=== PATIENT | female | born 1955 | race African-American/Black ===

== ENCOUNTER 2016-08-21 08:00 | Outpatient (RCR) | payer OTHER ==
[~2016-08-21 08:00] MED LIST: AGGRENOX 25 MG1 EACH ORAL; ALBUTEROL SULF8.5 GM INH; ASPIR-TRIN325 MG PO; AZELASTINE137 MCG/0. NS; AZITHROMYCIN250 MG ORAL; GUAIFENESIN-CO118 M1 PO; HUMALOG100 UNIT/4 SUBQ; LANTUS SOL100 UNIT/1 SUBQ; LOSARTAN-HCTZ1 EAC1 PO; NORVASC10 MG PO; PREDNISONE50 MG ORAL; PROAIR HFA8.5 GM IH; PROMETHAZINE-C118 M1 ORAL; PULMICORT FLEX90 MCG IH; SINGULAIR10 MG ORAL
== END 2016-09-17 | disposition home or self-care (01) ==
LOC: PTY 08:00
DX: M79.671 Pain in right foot (principal); M25.571 Pain in right ankle and joints of right foot; I89.0 Lymphedema, not elsewhere classified; Z91.81 History of falling; Z91.011 Allergy to milk products
CPT/HCPCS: 29530

== ENCOUNTER 2016-09-18 08:03 | Outpatient (RCR) | payer OTHER | END 2016-10-15 | disposition home or self-care (01) | LOC: PTY 08:03 | DX: M79.671 Pain in right foot (principal); M25.571 Pain in right ankle and joints of right foot; I89.0 Lymphedema, not elsewhere classified; Z91.81 History of falling; Z91.011 Allergy to milk products ==

== ENCOUNTER 2016-10-31 14:30 | Outpatient (RCR) | payer OTHER | END 2016-11-15 | disposition home or self-care (01) | LOC: PTY 14:30 | DX: M25.511 Pain in right shoulder (principal) | CPT/HCPCS: 97110; 97140; 97163; G0283 ==

== ENCOUNTER 2016-11-19 09:15 | Outpatient (RCR) | payer OTHER | END 2016-12-15 | disposition home or self-care (01) | LOC: PTY 09:15 | DX: M25.511 Pain in right shoulder (principal) | CPT/HCPCS: 97035; 97110; 97140; G0283 ==

== ENCOUNTER 2017-02-21 14:15 | Outpatient (RCR) | payer OTHER | END 2017-03-17 | disposition home or self-care (01) | LOC: PTY 14:15 | DX: M25.511 Pain in right shoulder (principal) | CPT/HCPCS: 97035; 97110; 97140; 97162; G0283 ==

== ENCOUNTER 2017-03-25 15:20 | Outpatient (RCR) | payer OTHER | END 2017-04-17 | disposition home or self-care (01) | LOC: PTY 15:20 | DX: M25.511 Pain in right shoulder (principal) | CPT/HCPCS: 97110; 97140; G0283 ==

== ENCOUNTER → 2017-04-17 | Outpatient (RCR) | payer OTHER | END | disposition home or self-care (01) | LOC: PTY 03-27 15:40 | DX: M17.11 Unilateral primary osteoarthritis, right knee (principal); M79.671 Pain in right foot; M25.571 Pain in right ankle and joints of right foot; I89.0 Lymphedema, not elsewhere classified; Z91.81 History of falling; Z91.011 Allergy to milk products | CPT/HCPCS: 97110; 97112; 97116; 97140; 97162; G0283 ==

== ENCOUNTER 2017-05-13 15:13 | Outpatient (RCR) | payer OTHER | END 2017-05-17 | disposition home or self-care (01) | LOC: PTY 15:13 | DX: M25.511 Pain in right shoulder (principal) | CPT/HCPCS: 97110; 97140; G0283 ==

== ENCOUNTER 2017-06-10 15:45 | Outpatient (RCR) | payer OTHER | END 2017-06-17 | disposition home or self-care (01) | LOC: PTY 15:45 | DX: M17.11 Unilateral primary osteoarthritis, right knee (principal) | CPT/HCPCS: 97110; 97140; G0283 ==

== ENCOUNTER 2017-11-20 16:00 | Outpatient (RCR) | payer OTHER | END 2017-12-15 | disposition home or self-care (01) | LOC: PTY 16:00 | PROVIDERS: ATTEND Internal Medicine | DX: M25.561 Pain in right knee (principal); M25.511 Pain in right shoulder | CPT/HCPCS: 97035; 97110; 97140; 97162; G0283 ==

== ENCOUNTER 2017-12-25 15:46 | Outpatient (RCR) | payer OTHER | END 2018-01-15 | disposition home or self-care (01) | LOC: PTY 15:46 | PROVIDERS: ATTEND Internal Medicine | DX: M25.561 Pain in right knee (principal); M25.511 Pain in right shoulder | CPT/HCPCS: 97032; 97110; 97140; G0283 ==

== ENCOUNTER 2018-01-23 14:00 | Outpatient (RCR) | payer OTHER | END 2018-02-14 | disposition home or self-care (01) | LOC: PTY 14:00 | PROVIDERS: ATTEND Internal Medicine | DX: M25.561 Pain in right knee (principal); M25.511 Pain in right shoulder; M25.571 Pain in right ankle and joints of right foot; M79.605 Pain in left leg | CPT/HCPCS: 97032; 97110; 97140; G0283 ==